=== PATIENT | female | born 1945 | race Caucasian/White ===

== ENCOUNTER 2018-02-16 05:15 | Inpatient (IN) | payer MEDICARE ==
[~2018-02-16] VITALS: Ht 152.4 cm; Wt 106.9 kg
[~2018-02-16 05:15] MED LIST: ASPI1TAB57 PO; MULT-113 PO; ROSU10 PO
[2018-02-16] MEDS ORDERED: SODIUM CHLORID 0.9% 500 ML IV PRN (06:00)
[2018-02-16] MEDS ORDERED: METOPROLOL TARTRATE 25 MG TAB PO PRN (06:00)
[2018-02-16] MEDS ORDERED: POVIDONE IODINE 5% (ANTISEPSIS KIT) 4 APPLICATIONS EACH NARE PRN (06:00)
[2018-02-16] MEDS ORDERED: ACETAMINOPHEN 1000 MG/100 ML 100 ML IV SCH (06:00)
[2018-02-16] MEDS ORDERED: VANCOMYCIN 1 GM/200 ML INJ 200 ML IV SCH (06:00)
[2018-02-16] MEDS ORDERED: SCOPOLAMINE 1.5 MG PATCH T-DERMAL SCH (06:00)
[2018-02-16] MEDS ORDERED: CHLORHEXIDINE GLUCONATE 2 % 1 PACK (2 CLOTHS) TOPICAL PRN (06:00)
[2018-02-16] MEDS ORDERED: APREPITANT 40 MG CAP PO SCH (06:00)
[2018-02-16] MEDS ORDERED: LACTATED RINGER'S 1000 ML IV PRN (06:00)
[2018-02-16] MEDS ORDERED: ONDANSETRON HCL 4 MG/2 ML VIAL IV PUSH SCH (06:00)
[2018-02-16] MEDS ORDERED: ONDANSETRON ODT 4 MG TAB ONE (06:20)
--- NOTE | 2018-02-16 07:35 | HHI.PR ---
Immediate Post Op Note Procedure Date: Feb 16, 2018 Pre Op Diagnosis: morbid obesity bmi 45, hypercholestremia, ra Post Op Diagnosis: same Surgeon: Javier Arias MD Media Developer(s): musa Procedure: lap sleeve over 36F visigi Findings: no leak with methylene blue, adhesions from open gallbladder incisional scar Complications: none Specimen(s) removed: none Estimated blood loss: 10cc Anesthesia: General Drains: None Patient to: PACU Patient Condition: Good Javier Arias MD Feb 16, 2018 07:35
[2018-02-16] MEDS ORDERED: METHYLENE BLUE 10 MG/ML VIAL NG ONE (07:59)
[2018-02-16] MEDS ORDERED: BUPIVACAINE HCL PF 0.25% 30 ML VIAL INFIL ONE (08:00)
[2018-02-16] MEDS ORDERED: diphenhydrAMINE HCL ELIXIR 12.5 MG/5 ML CUP PO PRN (09:15)
[2018-02-16] MEDS ORDERED: SODIUM CHLORIDE 0.9% FLUSH 10 ML FLUSH IV FLUSH PRN (09:15)
[2018-02-16] MEDS ORDERED: Post-op Orders (for Pharmacy) OTHER ONE (09:15)
[2018-02-16] MEDS ORDERED: ACETAMINOPHEN 325MG/HYDROcodone 7.5MG/15ML UDC PO PRN ×2 (09:15)
[2018-02-16] MEDS: SODIUM CHLORIDE 0.9% FLUSH 10 ML FLUSH IV FLUSH SCH ×2 (09:15→22:38)
[2018-02-16] MEDS ORDERED: diphenhydrAMINE HCL 50 MG/ML VIAL IV PUSH PRN (09:15)
[2018-02-16] MEDS ORDERED: ENALAPRILAT 1.25 MG/ML VIAL IV PUSH PRN (09:15)
[2018-02-16] MEDS ORDERED: DO NOT ADM ANY ANTICOAGULANT DRUGS PRN (09:24)
[2018-02-16] MEDS ORDERED: MIDAZOLAM HCL 2 MG/2 ML VIAL ONE (09:27)
[2018-02-16] MEDS: D5-1/2 NS + KCL 20 MEQ INJ 1,000 ML IV SCH ×3 (09:30→22:34)
[2018-02-16] MEDS: PCA - TOTAL MG MORPHINE DELIVERED PER SHIFT SCH ×2 (09:30→22:00)
[2018-02-16] MEDS ORDERED: NALOXONE HCL 0.4 MG/ML AMP IV PUSH PRN (09:30)
[2018-02-16] MEDS ORDERED: ENOXAPARIN SODIUM 40 MG/0.4 ML SYRINGE SQ SCH (10:00)
[2018-02-16] MEDS ORDERED: MORPHINE SULFATE 30 MG/30 ML PCA IV SCH (10:30)
[2018-02-16] MEDS ORDERED: ONDANSETRON ODT 4 MG TAB PO PRN (11:45)
[2018-02-16] MEDS: METOCLOPRAMIDE HCL 10 MG/2 ML VIAL IV PUSH SCH ×2 (12:00→16:55)
[2018-02-16] MEDS: ACETAMINOPHEN 1000 MG/100 ML 100 ML IV SCH ×2 (12:00→16:55)
[2018-02-16] MEDS: PANTOPRAZOLE SOD 40 MG DELAYED RELEASE TAB PO SCH (12:00)
[2018-02-16] MEDS ORDERED: *PROMETHAZINE 25 MG/ML VIAL PERIprocedural use ONLY ONE (12:14)
[2018-02-16] MEDS: ENOXAPARIN SODIUM 40 MG/0.4 ML SYRINGE SQ SCH (13:00)
--- NOTE | 2018-02-16 14:06 | MP ---
cc: Javier Arias MD DATE OF OPERATION: PREOPERATIVE DIAGNOSES: Morbid obesity, body mass index of 45, hypercholesteremia, arthritis, adhesions. POSTOPERATIVE DIAGNOSES: Morbid obesity, body mass index of 45, hypercholesteremia, arthritis, adhesions. PROCEDURE PERFORMED: 1. Laparoscopic sleeve gastrectomy over 36 ViSiGi bougie. 2. Lysis of adhesions. ANESTHESIA: GETA. IV FLUIDS: See anesthesia sheet. ESTIMATED BLOOD LOSS: 10 mL DRAINS: None. COMPLICATIONS: None. WOUND CLASSIFICATION: Clean/contaminated. ASSISTANTS: Ochoa. SPECIMENS: None. FINDINGS: No leak with methylene blue. Adhesions from prior open cholecystectomy. INDICATIONS FOR PROCEDURE: This is a 72-year-old female who presents with morbid obesity, BMI of 45 and multiple comorbidities as a result of obesity. She had multiple attempts at weight loss without success. A decision was made for bariatric surgery. DETAILS OF PROCEDURE: The patient was taken to the operating suite, placed in the supine position. She was prepped and draped in usual sterile fashion after induction of general endotracheal anesthesia. Brief timeout was undertaken stating correct patient, procedure, and surgical site, we were all in agreement with this. Attention first directed 5 cm distal to xiphoid midline. Local anesthetic was injected. A stab leslee incision was made. The Optiview 5 mm port was done under direct visualization to enter the abdomen. On cursory inspection, no evidence of injury. The abdomen was insufflated to 15 mm pneumoperitoneum. Several other ports were placed, including a 5 mm right upper quadrant port, 50 mm right lower quadrant port, a 5 mm left upper quadrant port and a 5 mm left lower quadrant port. The patient was placed in reverse Trendelenburg with the left side up. Lashay flex retractor was placed. Prior to commencement of all ports, lysis of adhesion was done. The patient had a previous cholecystectomy scar. There was omentum noted to be stuck up to this. A Harmonic scalpel was used to dissect out the adhesions away from the anterior abdominal wall in order to facilitate the surgical case. Next, after the lashay flex retractor was placed, the left lobe of the liver was retracted. The vasculature along the greater curvature of the stomach was using Harmonic scalpel, 5 cm proximal to the pylorus and carried all the way down to the angle of His. The angle of His was taken down bluntly posteriorly. The ligamentous attachments were as well. A 36-N[place] ViSiGi bougie was advanced and placed at the site of the case, placed on suction. Division of the stomach was done 5 cm from the pylorus and carried toward the angle of His, completely excising 80% of the stomach. The Endo-AD stapler was used to do this. First load was black load followed by green loads was then gold loads. These were reinforced with SeamGuard and staple loads. This was done, 2 cm left of the angle incisura and a staple line in a distance 1 cm from the GE junction staple line. The pylorus was noted and once this was complete, Methylene blue was instilled 120 mL, without evidence of leaking. The posterior leaflets of the SeamGuard on the staple line were attached to gastrocolic ligament in 4 different spots. The stomach was removed through the 50 mm right lower quadrant port. The portal was closed with 0 Vicryl in [id number] fashion. The pneumoperitoneum was removed. The patient was flattened out. A 4-0 Monocryl was used for all subcuticular sutures. Sterile dressings, including Mastisol and Steri-Strips were placed. The patient tolerated the procedure well. There were no intraoperative complications. All lap and instrument counts were correct at the end of procedure. The patient was extubated and taken stable to PACU. MD CHINYERE Chaney/MATTHEW , 01:32 PM , 02:05 PM
[2018-02-16 16:00] VITALS: BP 171/74; PULSE 65; RESP 16; TEMP 97.5; O2SAT 97
[2018-02-16 20:00] VITALS: BP 161/64; PULSE 61; RESP 16; TEMP 97.3; O2SAT 95
[2018-02-16] MEDS: VANCOMYCIN INJ 1,000 MG in SODIUM CHLOR 0.9% 250 ML INJ 250 ML IV SCH (20:00)
[2018-02-17] VITALS (9 sets, daily range): BP systolic 141–207; BP diastolic 60–89; PULSE 62–73; RESP 16–18; TEMP 97.1–98.5; O2SAT 93–98
[2018-02-17] MEDS: ACETAMINOPHEN 1000 MG/100 ML 100 ML IV SCH ×2 (00:18→04:59)
[2018-02-17] MEDS: METOCLOPRAMIDE HCL 10 MG/2 ML VIAL IV PUSH SCH ×2 (00:18→05:00)
[2018-02-17] MEDS: PCA - TOTAL MG MORPHINE DELIVERED PER SHIFT SCH (05:00)
[2018-02-17 08:36] LABS: BASOPHIL % 0.3 % (0.0-2.0); EOSINOPHIL % 0.1 % (0.0-4.0); HEMATOCRIT 42.6 % (35.0-46.0); LYMPH % 12.8 % (9.0-44.0); LYMPHOCYTE # 1.6 TH/MM3 (1.0-4.8); MEAN CELL VOLUME 96.3 FL (80.0-100.0); MEAN CORPUSCULAR HEMOGLOBIN 31.6 PG (27.0-34.0); MEAN CORPUSCULAR HGB CONC 32.8 % (32.0-36.0); MEAN PLATELET VOLUME 10.7 FL (7.0-11.0); MONO % 6.8 % (0.0-8.0); MONOCYTE # 0.8 TH/MM3 (0-0.9); PLATELET COUNT 202 TH/MM3 (150-450); RED BLOOD COUNT 4.42 MIL/MM3 (4.00-5.30); RED CELL DISTRIBUTION WIDTH 14.3 % (11.6-17.2); WHITE BLOOD COUNT 12.4 TH/MM3 (4.0-11.0)
[2018-02-17] MEDS: SODIUM CHLORIDE 0.9% FLUSH 10 ML FLUSH IV FLUSH SCH ×2 (09:00→21:00)
[2018-02-17] MEDS: D5-1/2 NS + KCL 20 MEQ INJ 1,000 ML IV SCH ×2 (09:13→21:30)
[2018-02-17] MEDS ORDERED: METOCLOPRAMIDE HCL 10 MG/2 ML VIAL IV PUSH PRN (09:15)
[2018-02-17] MEDS: PANTOPRAZOLE SOD 40 MG DELAYED RELEASE TAB PO SCH (09:22)
[2018-02-17] MEDS: VANCOMYCIN INJ 1,000 MG in SODIUM CHLOR 0.9% 250 ML INJ 250 ML IV SCH (09:22)
--- NOTE | 2018-02-17 10:30 | HHI.PR ---
Subjective Subjective Notes Doing well, no GI complaints. Tolerating PO intake. +Flatus Objective Vitals/I&O Vital Signs Date Time Temp Pulse Resp B/P (MAP) Pulse Ox O2 Delivery O2 Flow Rate FiO2 02/17/18 08:00 98.0 62 18 141/62 (88) 94 02/16/18 15:00 Nasal Cannula 3 Labs Laboratory Tests Test 02/17/18 06:55 White Blood Count 12.4 Red Blood Count 4.42 Hemoglobin 14.0 Hematocrit 42.6 Mean Corpuscular Volume 96.3 Mean Corpuscular Hemoglobin 31.6 Mean Corpuscular Hemoglobin Concent 32.8 Red Cell Distribution Width 14.3 Platelet Count 202 Mean Platelet Volume 10.7 Neutrophils (%) (Auto) 80.0 Lymphocytes (%) (Auto) 12.8 Monocytes (%) (Auto) 6.8 Eosinophils (%) (Auto) 0.1 Basophils (%) (Auto) 0.3 Neutrophils # (Auto) 10.0 Lymphocytes # (Auto) 1.6 Monocytes # (Auto) 0.8 Eosinophils # (Auto) 0.0 Basophils # (Auto) 0.0 CBC Comment DIFF FINAL Differential Comment Abdomen: Post-op tenderness Extremities: Perfused Wound Wound : Wound Location: Abdomen Appearance: Clean & Dry A/P Assessment and Plan 72yo F POD#1 laparoscopic VSG -D/C NURSE STAFF, transition to oral pain control -Decrease IVF -Continue with frequent ambulation -Increase fluids as tolerated Discharge Planning D/C home most likely this evening Attending Statement patient seen at bedside no acute issues tolerating liquids d/c later today Attestation The exam, history, and the medical decision-making described in the above note were completed with the assistance of the mid-level provider. I reviewed and agree with the findings presented. I attest that I had a [id number] encounter with the patient on the same day, and personally performed and documented my assessment and findings in the medical record. Faiza Evans Feb 17, 2018 10:30 Javier Arias MD Feb 21, 2018 22:52
[2018-02-17 10:48] LABS: BICARBONATE 24.5 MEQ/L (21.0-32.0); CALCIUM 8.7 MG/DL (8.5-10.1); CREATININE 0.53 MG/DL (0.50-1.00); MAGNESIUM 2.2 MG/DL (1.5-2.5)
[2018-02-17] MEDS: ENOXAPARIN SODIUM 40 MG/0.4 ML SYRINGE SQ SCH (13:34)
[2018-02-17] MEDS ORDERED: cloNIDine HCL 0.1 MG TAB PO PRN (19:15)
[2018-02-18] VITALS: BP 142/63; PULSE 74; RESP 18; TEMP 97.7; O2SAT 95
[2018-02-18 08:00] VITALS: BP 173/77; PULSE 76; RESP 20; TEMP 97.9; O2SAT 95
[2018-02-18] MEDS: PANTOPRAZOLE SOD 40 MG DELAYED RELEASE TAB PO SCH (09:22)
[2018-02-18] MEDS: SODIUM CHLORIDE 0.9% FLUSH 10 ML FLUSH IV FLUSH SCH (09:23)
--- NOTE | 2018-02-18 11:57 | HHI.PR ---
Subjective Subjective Notes Tolerating fluids, pain well controlled. No GI complaints Objective Vitals/I&O Vital Signs Date Time Temp Pulse Resp B/P (MAP) Pulse Ox O2 Delivery O2 Flow Rate FiO2 02/18/18 08:00 97.9 76 20 173/77 (109) 95 02/17/18 13:20 21 02/16/18 15:00 Nasal Cannula 3 Abdomen: Post-op tenderness Wound Wound : Wound Location: Abdomen Appearance: Clean & Dry A/P Assessment and Plan 72yo F POD#2 laparoscopic VSG -Continues with elevated systolic blood pressure despite dose of amlodipine and PRN clonidine, appreciate input from medicine -Ok to keep off IVF -Continue with frequent ambulation -Increase fluids as tolerated -Stable from surgical standpoint Discharge Planning D/C home most likely this evening pending hospitalist consult Faiza Evans Feb 18, 2018 11:57
[2018-02-18 12:00] VITALS: BP 157/72; PULSE 60; RESP 18; TEMP 98.1; O2SAT 96
[2018-02-18] MEDS: ENOXAPARIN SODIUM 40 MG/0.4 ML SYRINGE SQ SCH (12:52)
[2018-02-18 14:45] VITALS: O2SAT 96
[2018-02-18] MEDS ORDERED: AMLO10TA2 PO (15:18)
--- NOTE | 2018-02-18 15:20 | PD.CONS ---
HPI Service [facility] Consult Requested By Dr Arias Reason for Consult medical Management Primary Care Physician Carlos Victoria MD Diagnoses: History of Present Illness Patient is a very pleasant 72-year-old female with past medical history morbid obesity with BMI of 46, hypertension, hyperlipidemia, arthritis. Patient came for brigido en Y procedure by Dr Arias. Patient had the procedure and no events. Was placed on IV fluids. She is tolerating food she follows with dietary recommendations per surgeon. No nausea vomiting no diarrhea or constipation. No abdominal pain. No urinary complaints. She is able to ambulate without any problems. No chest pain shortness of breath. No headaches no motor deficit. Feels much better and wants to go home. She is stable medically and can be discharged. To follow-up with PCP and consultants as outpatient. To follow-up with the recommendations per surgeon Review of Systems Except as stated in HPI: all other systems reviewed are Neg Past Family Social History Allergies: Coded Allergies: Sulfa (Sulfonamide Antibiotics) (Unverified Allergy, Severe, UNKNOWN, ) DOSE NOT REMEMBER cephalexin (Unverified Allergy, Severe, PT STATES UNKOWN OF WHAT HAPPENS, 02/16/18) penicillin G (Unverified Allergy, Severe, Hives, 02/16/18) shrimp (Verified Allergy, Severe, swelling, 02/16/18) Past Medical History Morbid obesity with a BMI of 46, hyperlipidemia, hypertension, arthritis Past Surgical History Cholecystectomy, Tubal ligation, left ovary, left knee surgery, right eye cataract surgery Reported Medications Reported Meds & Active Scripts Active Amlodipine (Amlodipine Besylate) 10 Mg Tab 10 Mg PO DAILY Reported Crestor (Rosuvastatin Calcium) 10 Mg Tab 10 Mg PO EVERY OTHER DAY Family History Parents with history of hypertension. Father with history of blood cancer, unspecified Social History Occasional alcohol use. No illicit drug use or illicit drug use. Quit tobacco use more than 10 years ago Physical Exam Vital Signs Vital Signs Date Time Temp Pulse Resp B/P (MAP) Pulse Ox O2 Delivery O2 Flow Rate FiO2 02/18/18 14:45 96 21 02/18/18 12:00 98.1 60 18 157/72 (100) 96 02/18/18 08:00 97.9 76 20 173/77 (109) 95 02/18/18 00:00 97.7 74 18 142/63 (89) 95 02/17/18 20:00 98.5 73 18 159/60 (93) 95 02/17/18 16:00 98.0 65 18 180/74 (109) 98 Physical Exam GENERAL: This is a morbidly obese pleasant female, well-nourished, well- developed patient, in no apparent distress. SKIN: No rashes, ecchymoses or lesions. Cool and dry. HEAD: Atraumatic. Normocephalic. No temporal or scalp tenderness. EYES: Pupils equal round and reactive. Extraocular motions intact. No scleral icterus. No injection or drainage. ENT: Nose without bleeding, purulent drainage or septal hematoma. Throat without erythema, tonsillar hypertrophy or exudate. Uvula midline. Airway patent. NECK: Trachea midline. No JVD or lymphadenopathy. Supple, nontender, no meningeal signs. CARDIOVASCULAR: Regular rate and rhythm without murmurs, gallops, or rubs. RESPIRATORY: Clear to auscultation. Breath sounds equal bilaterally. No wheezes , rales, or rhonchi. GASTROINTESTINAL: Abdomen soft, obese, non-tender, nondistended. No hepato- splenomegaly, or palpable masses. No guarding. MUSCULOSKELETAL: Extremities without clubbing, cyanosis, or edema. No joint tenderness, effusion, or edema noted. No calf tenderness. Negative Homans sign bilaterally. NEUROLOGICAL: Awake and alert. Cranial nerves II through XII intact. Motor and sensory grossly within normal limits. Five out of 5 muscle strength in all muscle groups. Normal speech. Result Diagram: 02/17/18 0655 02/17/18 0655 Assessment and Plan Assessment and Plan Morbid obesity, body mass index of 45 Hypercholesteremia Arthritis Adhesions Hypertension S/P Laparoscopic sleeve gastrectomy over 36 ViSiGi bougmayra. Lysis of adhesions. By Dr Arias surg on 02/16/18 Continue management per surgeon Continue dietary recommendations per surgeon Continue home medications as appropriate. Patient is stable medically at this time. Can be discharged from hospital standpoint. Follow-up diet recommendations per surgeon indications. Follow-up with outpatient. Discussed Condition With Patient, nurse Meredith Aleman MD Feb 18, 2018 15:20
[2018-02-18 17:28] VITALS: BP 163/73
== END 2018-02-18 17:31 | disposition home or self-care (01) | DRG 621 ==
LOC: HSDI 05:15 → N07A 15:28
PROVIDERS: ADMIT Surgery; ATTEND Surgery
PROC: 0DB64Z3 Excision of Stomach, Percutaneous Endoscopic Approach, Vertical (ICD-10-PCS; principal; 2018-02-16 07:15)
DX: E66.01 Morbid (severe) obesity due to excess calories (principal); I10 Essential (primary) hypertension; M19.90 Unspecified osteoarthritis, unspecified site; Z68.42 Body mass index [BMI] 45.0-49.9, adult; E78.00 Pure hypercholesterolemia, unspecified; E78.5 Hyperlipidemia, unspecified; Z82.49 Family history of ischemic heart disease and other diseases of the circulatory system; Z87.891 Personal history of nicotine dependence
CPT/HCPCS: 80048; 83735; 85025; 94150; J0131; J1650; J2250; J2270; J2550; J2765; J3010; J3370; J3480; J7050; J7120; J8501